=== PATIENT | male | born 1955 | race Two or more races ===

== ENCOUNTER 2017-01-15 00:39 | Emergency (ER) | payer SELFPAY ==
--- NOTE | ~2017-01-15 | ER ---
PATIENT'S NAME: BRAN PABLO [facility] AGE: 61 Y [address] ROOM: [place] [address] LOCATION: [facility] ADMIT DATE: 01/15/2017 ER/Outpatient Report DISCHARGE DATE: 01/15/2017 FAMILY PHYSICIAN: Physician, Unknown ATTENDING PHYSICIAN: Lg Lewis TIME OF ARRIVAL: 0037 hours. TIME OF EVALUATION: 0037 hours. CHIEF COMPLAINT: The room is spinning. HISTORY OF PRESENT ILLNESS: The patient is a 61-year-old male who presents to the emergency department today with a chief complaint of room spinning. It was sudden onset. It started about 2 hours prior to arrival. He has sensation that the room was spinning. He nearly fell out of bed. He has had nausea and vomiting x2 as well as one episode of diarrhea. Denies any fevers or chills. He has had some nasal congestion and nasal drainage. Denies any chest pain. No shortness of breath. There is question of whether the patient passed out for a brief period. Denies any headache and no abdominal pain. PAST MEDICAL HISTORY: None. PAST SURGICAL HISTORY: Right shoulder, heart cath. SOCIAL HISTORY: The patient denies any tobacco, alcohol, or illicit drug use. ALLERGIES: NO KNOWN DRUG ALLERGIES. MEDICATIONS: Please see list. PRIMARY CARE PHYSICIAN: None. REVIEW OF SYSTEMS: All systems are reviewed by myself are negative with the exception of those PATIENT'S NAME: BRAN PABLO AGE: 61 Y [address] ROOM: [place] [address] LOCATION: [facility] ADMIT DATE: 01/15/2017 ER/Outpatient Report DISCHARGE DATE: 01/15/2017 FAMILY PHYSICIAN: Physician, Unknown ATTENDING PHYSICIAN: Lg Lewis discussed in HPI and past medical history. PHYSICAL EXAMINATION: VITAL SIGNS: Blood pressure 158/74, pulse 77, respiratory rate 18, temperature 96.1, and oxygen saturation 97% on room air. GENERAL: The patient is a 61-year-old male, appears stated age, actively vomiting. HEENT: Normocephalic, atraumatic. Pupils are equal, round, and reactive to light and accommodation. Extraocular motions are intact. Nares are patent bilaterally. TMs are clear. Oropharynx is clear. NECK: Supple. There is no nuchal rigidity. CARDIOVASCULAR: Regular rate and rhythm. No murmurs, rubs, or gallops. LUNGS: Clear to auscultation bilaterally. No wheezes, rales, or rhonchi. ABDOMEN: Soft, nontender, and nondistended. No rebound, rigidity, or guarding. MUSCULOSKELETAL: The patient moves all 4 extremities. A 5/5 muscle strength. NEUROLOGICAL: GCS 15. Alert and oriented x4. Cranial nerves 2 through 12 are intact. Downward going toes. No clonus. A 2/4 reflexes. SKIN: Warm and dry. LABS AND X-RAYS: CT scan of the brain is obtained. It shows no acute process. EKG shows sinus rhythm with a rate of 66, normal axis, QTc of 458, no ST-elevation, ST- depression, or T-wave inversions. CBC is normal. CMP is unremarkable. Calcium 7.6. ALT is normal. Mag is normal. Cardiac enzymes are normal. Chest x-ray is normal. Coags are normal. IMPRESSION: 1. Vertigo. 2. Initial visit. EMERGENCY DEPARTMENT COURSE: The patient brought back to the examination room. Seen and evaluated by myself. IV is established. The patient was given an L of normal saline, 4 mg of Zofran IV, 5 mg of Valium, 2.5 mg IV Valium, as well as 25 mg of meclizine p.o. I have discussed results with the patient. The patient is [place] speaking. His daughter does work here and is interpreting. I have asked if he would like a outside medical sales representative and the patient refuses. He would prefer to use his daughter. I have discussed results with the patient. I have recommended close followup with primary care doctor. He is able to ambulate to the bathroom. I have written a prescription for meclizine for home as well as provided work note for him. I have discussed [id number] instructions including worsening symptoms or any other concerns to return to the emergency department as soon as possible. The patient is agreeable and family is agreeable without further questions. PATIENT'S NAME: BRAN PABLO AGE: 61 Y [address] ROOM: [place] [address] LOCATION: ED ADMIT DATE: 01/15/2017 ER/Outpatient Report DISCHARGE DATE: 01/15/2017 FAMILY PHYSICIAN: Physician, Unknown ATTENDING PHYSICIAN: Lg Lewis DISPOSITION: The patient is discharged home in good condition. DO MURPHY SHANNONR/modl /[id number] d: 01/15/17 0547 t: 01/18/17 1900, OUTPATIENT REPORT
[~2017-01-15 00:39] MED LIST: 8 HOUR650 MG PO; ADVIL200 M1 PO; ASPIRIN (CHILDR81 MG PO; FISH OIL1000 MG PO; NITROSTAT0.4 MG PO
[2017-01-15 02:06] LABS: BASOPHIL % 0.6 %; EOSINOPHIL # 0.1 K/uL (0.0-0.5); EOSINOPHIL % 1.3 %; HEMATOCRIT 38.8 % (37.0-53.0); HEMOGLOBIN 13.7 g/dL (11.0-16.0); IMMATURE GRANULOCYTE % 0.4 %; LYMPHOCYTE # 1.3 K/uL (0.8-4.0); MCH 31.1 pg (27.0-34.0); MCHC 35.3 gm/dL (32.0-36.5); MONOCYTE # 0.4 K/uL (0.0-1.0); MONOCYTE % 5.1 %; MPV 9.6 fl (9.4-12.4); NEUTROPHIL # (ANC) 5.3 K/uL (1.4-9.0); NEUTROPHIL % 74.6 %; NRBC % 0 /100WBC (0-0.00); PLATELET COUNT 189 K/uL (150-450); RBC 4.41 M/uL (3.50-5.50); RDW-CV 12.2 % (11.9-14.6); WBC 7.1 K/uL (4.0-11.0)
[2017-01-15 02:15] LABS: INR - (THERAPEUTIC) 0.96 (0.92-1.07); PROTIME 10.1 SECONDS (9.8-11.4); PTT 25 SECONDS (25-32)
[2017-01-15 02:24] LABS: ALBUMIN 3.2 gm/dL (3.5-5.0); ALK PHOS 81 IU/L (33-138); ALT 26 IU/L (12-78); ANION GAP 11.3 (10.0-19.0); AST 16 IU/L (10-40); BLOOD UREA NITROGEN 23 mg/dL (6-24); CALCIUM 7.6 mg/dL (8.5-10.5); CHLORIDE 111 mMol/L (96-110); CO2 26 mMol/L (22-32); CPK 182 IU/L (35-332); CREATININE 0.9 mg/dL (0.6-1.3); ESTIMATED GFR (MDRD EQUATION) > 60; MAGNESIUM 2.1 mg/dL (1.8-2.6); POTASSIUM 4.3 mMol/L (3.7-5.1); SODIUM 144 mMol/L (135-145); TOTAL BILIRUBIN 0.4 mg/dL (0.0-1.5); TOTAL PROTEIN 6.3 g/dL (6.0-8.4)
== END 2017-01-15 03:11 | disposition disaster alternative care site (69) ==
LOC: GMED 00:39
PROVIDERS: Emergency Medicine
DX: R42 Dizziness and giddiness (principal); Z98.890 Other specified postprocedural states; Z79.82 Long term (current) use of aspirin
CPT/HCPCS: J2405; J3360; J7030